=== PATIENT | male | born 1990 | race Caucasian/White ===

== ENCOUNTER 2017-08-11 22:20 | Emergency (ER) | payer OTHER ==
[~2017-08-11 22:20] MED LIST: AMOXICILLIN500 MG PO; AMOXIL500 MG PO; ANAPROX DS550 MG PO; BACTRIM DS 8001 TA1 PO; CLINDAMYCIN HC300 MG PO; COMPAZINE10 MG PO; CYCLOBENZAPRINE10 MG PO; FIORICET 325 MG1 TAB PO; FLEXERIL10 MG PO; FLEXERIL5 MG PO; Fioricet 325 MG1 TAB PO; HYDROCODONE BIT1 T11 PO; IBU800 MG PO; MOTRIN600 MG PO; MOTRIN800 MG PO; NKHM; PEN-VEE K500 MG PO; PREDNICOT20 MG PO; ROBAXIN750 MG PO; SEPTRA DS 800 M1 TAB PO; SUDAFED60 MG PO; TRAMADOL HCL50 MG PO; ULTRAM50 MG PO; VICODIN 5/500 505 MG PO; VICODIN ES 7501 TAB PO; ZANTAC150 MG PO; ZITHROMAX Z-PA250 MG PO; Zofran4 MG PO
== END 2017-08-12 02:01 | disposition left against medical advice (07) ==
LOC: ED 22:20
DX: T40.601A Poisoning by unspecified narcotics, accidental (unintentional), initial encounter (principal); F17.200 Nicotine dependence, unspecified, uncomplicated; Y92.9 Unspecified place or not applicable